=== PATIENT | female | born 1960 | race Caucasian/White ===

== ENCOUNTER 2017-07-24 11:34 | Inpatient (IN) | payer MEDICARE, OTHER ==
[~2017-07-24] VITALS: Ht 152.4 cm; Wt 72.0 kg
[~2017-07-24 11:34] MED LIST: CEPH500C2 PO
[2017-07-24 12:18] LABS: BASOPHILS # (AUTO) 0.2 X10'3 (0-0.2); EOSINOPHILS # (AUTO) 0.1 X10'3 (0-0.9); EOSINOPHILS % (AUTO) 0.4 % (0-6); HEMATOCRIT 34.3 % (35.0-45.0); HEMOGLOBIN 11.6 g/dl (12.0-16.0); LYMPHOCYTES % (AUTO) 6.2 % (21-51); MEAN CORPUSCULAR HEMOGLOBIN 34.3 PG (27.0-31.0); MEAN CORPUSCULAR VOLUME 100.9 FL (78-98); MEAN PLATELET VOLUME 7.2 FL (7.4-10.4); MONOCYTES # (AUTO) 0.8 X10'3 (0-0.9); MONOCYTES % (AUTO) 4.5 % (2-12); NEUTROPHILS # (AUTO) 14.8 X10'3 (1.8-7.7); NEUTROPHILS % (AUTO) 87.9 % (42-75); PLATELET COUNT 263 X10'3 (140-440); RED CELL DISTRIBUTION WIDTH 13.4 % (11.5-14.5); WHITE BLOOD COUNT 16.8 X10'3 (4.5-11.0)
[2017-07-24 12:28] LABS: PARTIAL THROMBOPLASTIN TIME 31 SECONDS (22-32); PROTHROMBIN TIME 10.2 SECONDS (9.0-12.0)
[2017-07-24 12:34] LABS: ALANINE AMINOTRANSFERASE 44 U/L (12-78); ALBUMIN 2.5 G/DL (3.4-5.0); ALBUMIN/GLOBULIN RATIO 0.5 (1.1-1.5); ALKALINE PHOSPHATASE 228 IU/L (46-116); ANION GAP 10 (8-16); ASPARTATE AMINO TRANSFERASE 61 U/L (10-37); BILIRUBIN,TOTAL 0.5 MG/DL (0.1-1.0); BLOOD UREA NITROGEN 14 MG/DL (7-18); BUN/CREATININE RATIO 18.9 (6.6-38.0); CHLORIDE 98 MMOL/L (99-107); CREATININE 0.74 MG/DL (0.40-0.90); GLUCOSE 101 MG/DL (70-104); SODIUM 136 MMOL/L (135-145); TOTAL CARBON DIOXIDE 27.9 MMOL/L (24-32); eGFR 81 ML/MIN
[2017-07-24] MEDS ORDERED: MIDAZolam 5mg/ml 2ml vial IV ONE (13:35)
[2017-07-24] MEDS ORDERED: normal saline 1000ML IV soln IVB ONE (13:35)
[2017-07-24 14:40] LABS: CLARITY,URINE SLIGHTLY CLOUDY (Clear); GLUCOSE, URINE NEGATIVE (Neg); KETONES,URINE NEGATIVE (Neg); LEUKOCYTE ESTERASE ,URINE LARGE (Neg); NITRITES, URINE NEGATIVE (Neg); OCCULT BLOOD,URINE SMALL (Neg); PROTEIN,URINE 100 mg/dl (Neg); UROBILINOGEN,URINE 0.2 E.U/dL (0.2-1.0)
[2017-07-24 14:41] LABS: COLOR,URINE DARK YELLOW (Yellow); UA COLLECTION TYPE FOLEY CATH
[2017-07-24 14:46] LABS: WBC,URINE 50-100 /HPF (0-4)
[2017-07-24 14:47] LABS: BACTERIA,URINE 1+ /HPF (Neg); MUCUS STRANDS NONE SEEN /LPF (Neg); SQUAMOUS EPITHELIAL CELL,UR NONE SEEN /LPF (FEW); WBC CLUMPS,URINE FEW /HPF (NEGATIVE)
[2017-07-24] MEDS ORDERED: CefTRIAXone/D5W-Rocephin 1gm 50 ML IV ONE (15:25)
[2017-07-24] MEDS ORDERED: mag hydrox/Alum hydrox/simeth 30ml oral suspension PO PRN (15:45)
[2017-07-24] MEDS ORDERED: magnesium Cl slow-release 64mg tablet PO PRN (15:45)
[2017-07-24] MEDS ORDERED: magnesium 4gm in 100ml NS 100 ML IV PRN (15:45)
[2017-07-24] MEDS ORDERED: potassium Cl 40MEQ/NS 500ml 500 ML IV PRN ×2 (15:45)
[2017-07-24] MEDS ORDERED: magnesium 2GM in 50ml NS 50 ML IV PRN (15:45)
[2017-07-24] MEDS ORDERED: potassium Cl 20 mEq SR tablet PO PRN (15:45)
[2017-07-24] MEDS ORDERED: magnesium hydroxide 30ml (MOM) UD suspension PO PRN (15:45)
[2017-07-24] MEDS: CefTRIAXone/D5W-Rocephin 1gm 50 ML IV SCH (15:55)
[2017-07-24] MEDS ORDERED: POLY17PO10 PO (16:22)
[2017-07-24] MEDS ORDERED: MULT-1074 PO (16:22)
[2017-07-24] MEDS ORDERED: CHOL10002 PO (16:22)
[2017-07-24] MEDS ORDERED: LACTC PO (16:22)
[2017-07-24] MEDS ORDERED: CARB200T PO (16:22)
[2017-07-24] MEDS ORDERED: TRAZ-143 PO (16:22)
[2017-07-24] MEDS ORDERED: ACET-2119 PO (16:22)
[2017-07-24] MEDS ORDERED: LACT10SO6 PO (16:22)
[2017-07-24] MEDS: normal saline 1000ml 1,000 ML IV SCH (16:45)
[2017-07-24] MEDS ORDERED: acetaminophen 325mg tablet PO PRN (17:15)
[2017-07-24 19:00] VITALS: BP 121/72
[2017-07-24] MEDS: carBAMazepine 100mg chewable tablet PO SCH (20:41)
[2017-07-24] MEDS: lactobacillus rhamnosus 10,000 MMU CELLS/CAPSULE PO SCH (20:41)
[2017-07-24] MEDS: traZODone 50mg tablet PO SCH (20:41)
[2017-07-24] MEDS: heparin, porcine 5000 units/ml vial SQ SCH (20:42)
[2017-07-24] MEDS: lactulose 20gm/30ml cup PO SCH (20:46)
[2017-07-25] VITALS: BP 160/77
[2017-07-25] MEDS: acetaminophen 325mg tablet PO PRN ×2 (00:56→20:12)
[2017-07-25] MEDS: normal saline 1000ml 1,000 ML IV SCH ×3 (02:47→13:33)
[2017-07-25 05:36] LABS: BASOPHILS % (AUTO) 0 % (0-1); EOSINOPHILS # (AUTO) 0.1 X10'3 (0-0.9); EOSINOPHILS % (AUTO) 0.4 % (0-6); HEMATOCRIT 28.4 % (35.0-45.0); HEMOGLOBIN 9.8 g/dl (12.0-16.0); LYMPHOCYTES # (AUTO) 0.9 X10'3 (1.1-4.8); LYMPHOCYTES % (AUTO) 7.9 % (21-51); MEAN CORPUSCULAR HEMOGLOBIN 34.8 PG (27.0-31.0); MEAN CORPUSCULAR HGB CONC 34.4 % (33.0-36.5); MEAN CORPUSCULAR VOLUME 101.2 FL (78-98); MEAN PLATELET VOLUME 7.7 FL (7.4-10.4); MONOCYTES # (AUTO) 0.9 X10'3 (0-0.9); MONOCYTES % (AUTO) 7.6 % (2-12); NEUTROPHILS # (AUTO) 10.1 X10'3 (1.8-7.7); NEUTROPHILS % (AUTO) 84.1 % (42-75); PLATELET COUNT 229 X10'3 (140-440); RED BLOOD COUNT 2.81 X10'6 (4.20-5.60); RED CELL DISTRIBUTION WIDTH 13.3 % (11.5-14.5); WHITE BLOOD COUNT 12.1 X10'3 (4.5-11.0)
[2017-07-25 05:57] LABS: ALANINE AMINOTRANSFERASE 33 U/L (12-78); ALBUMIN 1.9 G/DL (3.4-5.0); ALBUMIN/GLOBULIN RATIO 0.4 (1.1-1.5); ALKALINE PHOSPHATASE 195 IU/L (46-116); ANION GAP 10 (8-16); ASPARTATE AMINO TRANSFERASE 41 U/L (10-37); BILIRUBIN,TOTAL 0.4 MG/DL (0.1-1.0); BLOOD UREA NITROGEN 10 MG/DL (7-18); BUN/CREATININE RATIO 13.5 (6.6-38.0); CHLORIDE 104 MMOL/L (99-107); CREATININE 0.74 MG/DL (0.40-0.90); GLUCOSE 106 MG/DL (70-104); POTASSIUM 3.6 MMOL/L (3.5-5.1); SODIUM 139 MMOL/L (135-145); TOTAL CARBON DIOXIDE 25.5 MMOL/L (24-32); TOTAL PROTEIN 6.5 G/DL (6.4-8.2); eGFR 81 ML/MIN
[2017-07-25 06:00] VITALS: BP 154/73
[2017-07-25] MEDS: CefTRIAXone/D5W-Rocephin 1gm 50 ML IV SCH (09:05)
[2017-07-25] MEDS: multivitamins, therapeutics tablet PO SCH (09:06)
[2017-07-25] MEDS: lactobacillus rhamnosus 10,000 MMU CELLS/CAPSULE PO SCH ×2 (09:06→20:12)
[2017-07-25] MEDS: vitamin D (cholecalciferol) 1,000 unit tablet PO SCH (09:06)
[2017-07-25] MEDS: carBAMazepine 100mg chewable tablet PO SCH ×4 (09:06→20:13)
[2017-07-25] MEDS: heparin, porcine 5000 units/ml vial SQ SCH ×2 (09:10→20:19)
[2017-07-25 11:00] VITALS: BP 152/67
[2017-07-25 18:30] VITALS: BP 170/103
[2017-07-25] MEDS: traZODone 50mg tablet PO SCH (20:12)
[2017-07-25 23:00] VITALS: BP 127/53
[2017-07-26] MEDS: normal saline 1000ml 1,000 ML IV SCH ×2 (00:16→17:21)
[2017-07-26 04:56] LABS: BASOPHILS % (AUTO) 0.1 % (0-1); EOSINOPHILS # (AUTO) 0.1 X10'3 (0-0.9); EOSINOPHILS % (AUTO) 0.6 % (0-6); HEMATOCRIT 33.7 % (35.0-45.0); HEMOGLOBIN 11.4 g/dl (12.0-16.0); LYMPHOCYTES # (AUTO) 1.2 X10'3 (1.1-4.8); LYMPHOCYTES % (AUTO) 8.6 % (21-51); MEAN CORPUSCULAR HEMOGLOBIN 34.6 PG (27.0-31.0); MEAN CORPUSCULAR HGB CONC 33.9 % (33.0-36.5); MEAN CORPUSCULAR VOLUME 101.9 FL (78-98); MEAN PLATELET VOLUME 7.4 FL (7.4-10.4); MONOCYTES # (AUTO) 1.1 X10'3 (0-0.9); MONOCYTES % (AUTO) 7.4 % (2-12); NEUTROPHILS # (AUTO) 11.9 X10'3 (1.8-7.7); NEUTROPHILS % (AUTO) 83.3 % (42-75); PLATELET COUNT 278 X10'3 (140-440); RED CELL DISTRIBUTION WIDTH 13.7 % (11.5-14.5); WHITE BLOOD COUNT 14.2 X10'3 (4.5-11.0)
[2017-07-26 05:44] LABS: ALANINE AMINOTRANSFERASE 42 U/L (12-78); ALBUMIN 2.1 G/DL (3.4-5.0); ALBUMIN/GLOBULIN RATIO 0.4 (1.1-1.5); ALKALINE PHOSPHATASE 230 IU/L (46-116); ANION GAP 11 (8-16); ASPARTATE AMINO TRANSFERASE 54 U/L (10-37); BILIRUBIN,TOTAL 0.4 MG/DL (0.1-1.0); BLOOD UREA NITROGEN 7 MG/DL (7-18); BUN/CREATININE RATIO 10.4 (6.6-38.0); CALCIUM 8.4 MG/DL (8.5-10.1); CHLORIDE 105 MMOL/L (99-107); CREATININE 0.67 MG/DL (0.40-0.90); GLUCOSE 108 MG/DL (70-104); POTASSIUM 3.8 MMOL/L (3.5-5.1); SODIUM 142 MMOL/L (135-145); TOTAL PROTEIN 7.3 G/DL (6.4-8.2); eGFR 90 ML/MIN
[2017-07-26 07:23] VITALS: BP 153/68
[2017-07-26] MEDS: lactobacillus rhamnosus 10,000 MMU CELLS/CAPSULE PO SCH ×2 (08:57→19:37)
[2017-07-26] MEDS: vitamin D (cholecalciferol) 1,000 unit tablet PO SCH (08:57)
[2017-07-26] MEDS: multivitamins, therapeutics tablet PO SCH (08:57)
[2017-07-26] MEDS: heparin, porcine 5000 units/ml vial SQ SCH ×2 (08:57→19:40)
[2017-07-26] MEDS: acetaminophen 325mg tablet PO PRN ×2 (08:58→19:38)
[2017-07-26] MEDS: carBAMazepine 100mg chewable tablet PO SCH ×4 (08:58→21:51)
[2017-07-26] MEDS: piperacillin/tazo 3.375gm/50ml 50 ML IV SCH ×3 (11:13→19:37)
[2017-07-26] MEDS: vancomycin/NS 1 GM ADD-VANTAGE 250 ML IV SCH ×2 (12:17→22:39)
[2017-07-26 12:24] VITALS: BP 107/50
[2017-07-26] MEDS: lactulose 20gm/30ml cup PO SCH (17:20)
[2017-07-26 19:00] VITALS: BP 145/58
[2017-07-26] MEDS: traZODone 50mg tablet PO SCH (21:52)
[2017-07-27] MEDS: piperacillin/tazo 3.375gm/50ml 50 ML IV SCH ×4 (01:03→20:27)
[2017-07-27] MEDS: acetaminophen 325mg tablet PO PRN ×2 (02:55→23:42)
[2017-07-27] MEDS: normal saline 1000ml 1,000 ML IV SCH ×3 (03:43→23:43)
[2017-07-27 04:00] VITALS: BP 145/69
[2017-07-27 05:36] LABS: BASOPHILS % (AUTO) 0.3 % (0-1); EOSINOPHILS # (AUTO) 0.1 X10'3 (0-0.9); EOSINOPHILS % (AUTO) 0.7 % (0-6); HEMATOCRIT 28.1 % (35.0-45.0); HEMOGLOBIN 9.6 g/dl (12.0-16.0); LYMPHOCYTES # (AUTO) 1.2 X10'3 (1.1-4.8); LYMPHOCYTES % (AUTO) 10.5 % (21-51); MEAN CORPUSCULAR HEMOGLOBIN 34.5 PG (27.0-31.0); MEAN CORPUSCULAR HGB CONC 34.2 % (33.0-36.5); MEAN CORPUSCULAR VOLUME 101.1 FL (78-98); MEAN PLATELET VOLUME 7.4 FL (7.4-10.4); MONOCYTES # (AUTO) 1.2 X10'3 (0-0.9); MONOCYTES % (AUTO) 10.2 % (2-12); NEUTROPHILS # (AUTO) 8.9 X10'3 (1.8-7.7); NEUTROPHILS % (AUTO) 78.3 % (42-75); PLATELET COUNT 268 X10'3 (140-440); RED BLOOD COUNT 2.78 X10'6 (4.20-5.60); RED CELL DISTRIBUTION WIDTH 13.4 % (11.5-14.5); WHITE BLOOD COUNT 11.3 X10'3 (4.5-11.0)
[2017-07-27 06:01] LABS: ALANINE AMINOTRANSFERASE 29 U/L (12-78); ALBUMIN 1.9 G/DL (3.4-5.0); ALBUMIN/GLOBULIN RATIO 0.4 (1.1-1.5); ALKALINE PHOSPHATASE 175 IU/L (46-116); ANION GAP 10 (8-16); ASPARTATE AMINO TRANSFERASE 24 U/L (10-37); BILIRUBIN,TOTAL 0.4 MG/DL (0.1-1.0); BLOOD UREA NITROGEN 6 MG/DL (7-18); BUN/CREATININE RATIO 8.5 (6.6-38.0); CALCIUM 7.8 MG/DL (8.5-10.1); CHLORIDE 104 MMOL/L (99-107); CREATININE 0.71 MG/DL (0.40-0.90); GLUCOSE 146 MG/DL (70-104); MAGNESIUM 1.8 MG/DL (1.5-2.4); POTASSIUM 3.2 MMOL/L (3.5-5.1); SODIUM 140 MMOL/L (135-145); TOTAL CARBON DIOXIDE 25.9 MMOL/L (24-32); TOTAL PROTEIN 6.4 G/DL (6.4-8.2); eGFR 85 ML/MIN
[2017-07-27 07:00] VITALS: BP 136/62
[2017-07-27] MEDS: multivitamins, therapeutics tablet PO SCH (08:11)
[2017-07-27] MEDS: heparin, porcine 5000 units/ml vial SQ SCH ×2 (08:11→20:28)
[2017-07-27] MEDS: lactobacillus rhamnosus 10,000 MMU CELLS/CAPSULE PO SCH ×2 (08:11→20:27)
[2017-07-27] MEDS: vitamin D (cholecalciferol) 1,000 unit tablet PO SCH (08:11)
[2017-07-27] MEDS: potassium Cl 20 mEq SR tablet PO PRN ×2 (08:12→11:53)
[2017-07-27] MEDS: carBAMazepine 100mg chewable tablet PO SCH ×4 (10:27→20:28)
[2017-07-27 11:28] VITALS: BP 174/84
[2017-07-27] MEDS ORDERED: hydrALAZINE 20mg/ml inj. IV PRN (11:35)
[2017-07-27] MEDS: ondansetron/PF 4mg/2ml inj IV PRN ×2 (11:52→19:15)
[2017-07-27] MEDS: vancomycin/NS 1 GM ADD-VANTAGE 250 ML IV SCH ×2 (11:53→22:55)
[2017-07-27 13:44] VITALS: BP 131/60
[2017-07-27] MEDS ORDERED: potassium Cl 20 mEq SR tablet PO PRN ×2 (16:50)
[2017-07-27] MEDS ORDERED: potassium Cl 40MEQ/NS 500ml 500 ML IV PRN ×2 (16:50)
[2017-07-27 19:00] VITALS: BP 144/73
[2017-07-27] MEDS: traZODone 50mg tablet PO SCH (20:28)
[2017-07-27] MEDS ORDERED: VANCOMYCIN LEVEL IV ONE (22:30)
[2017-07-28] VITALS: BP 126/55
[2017-07-28] MEDS: piperacillin/tazo 3.375gm/50ml 50 ML IV SCH ×4 (01:42→20:28)
[2017-07-28 05:57] LABS: BASOPHILS % (AUTO) 0.3 % (0-1); EOSINOPHILS # (AUTO) 0.3 X10'3 (0-0.9); EOSINOPHILS % (AUTO) 3.2 % (0-6); HEMATOCRIT 26.7 % (35.0-45.0); LYMPHOCYTES # (AUTO) 1.9 X10'3 (1.1-4.8); LYMPHOCYTES % (AUTO) 19.4 % (21-51); MEAN CORPUSCULAR HEMOGLOBIN 34.4 PG (27.0-31.0); MEAN CORPUSCULAR HGB CONC 33.8 % (33.0-36.5); MEAN CORPUSCULAR VOLUME 101.8 FL (78-98); MEAN PLATELET VOLUME 7.4 FL (7.4-10.4); MONOCYTES # (AUTO) 1.1 X10'3 (0-0.9); MONOCYTES % (AUTO) 10.8 % (2-12); NEUTROPHILS # (AUTO) 6.5 X10'3 (1.8-7.7); NEUTROPHILS % (AUTO) 66.3 % (42-75); PLATELET COUNT 310 X10'3 (140-440); RED BLOOD COUNT 2.62 X10'6 (4.20-5.60); RED CELL DISTRIBUTION WIDTH 13.8 % (11.5-14.5); WHITE BLOOD COUNT 9.9 X10'3 (4.5-11.0)
[2017-07-28 06:05] LABS: ALANINE AMINOTRANSFERASE 25 U/L (12-78); ALBUMIN 1.7 G/DL (3.4-5.0); ALBUMIN/GLOBULIN RATIO 0.4 (1.1-1.5); ALKALINE PHOSPHATASE 135 IU/L (46-116); ANION GAP 6 (8-16); ASPARTATE AMINO TRANSFERASE 23 U/L (10-37); BILIRUBIN,TOTAL 0.4 MG/DL (0.1-1.0); BLOOD UREA NITROGEN 8 MG/DL (7-18); BUN/CREATININE RATIO 10.3 (6.6-38.0); CALCIUM 7.7 MG/DL (8.5-10.1); CHLORIDE 107 MMOL/L (99-107); CREATININE 0.78 MG/DL (0.40-0.90); GLUCOSE 130 MG/DL (70-104); MAGNESIUM 1.8 MG/DL (1.5-2.4); POTASSIUM 3.6 MMOL/L (3.5-5.1); SODIUM 140 MMOL/L (135-145); TOTAL CARBON DIOXIDE 26.8 MMOL/L (24-32); TOTAL PROTEIN 5.8 G/DL (6.4-8.2); eGFR 76 ML/MIN
[2017-07-28 07:00] VITALS: BP 128/50
[2017-07-28] MEDS: lactobacillus rhamnosus 10,000 MMU CELLS/CAPSULE PO SCH ×2 (08:42→20:29)
[2017-07-28] MEDS: multivitamins, therapeutics tablet PO SCH (08:43)
[2017-07-28] MEDS: heparin, porcine 5000 units/ml vial SQ SCH ×2 (08:43→20:28)
[2017-07-28] MEDS: carBAMazepine 100mg chewable tablet PO SCH ×4 (08:43→20:30)
[2017-07-28] MEDS: vitamin D (cholecalciferol) 1,000 unit tablet PO SCH (08:43)
[2017-07-28] MEDS: normal saline 1000ml 1,000 ML IV SCH (08:44)
[2017-07-28 11:00] VITALS: BP 102/75
[2017-07-28] MEDS: vancomycin inj 1,250 MG in normal saline 250ml IV soln 250 ML IV SCH ×2 (11:57→23:12)
[2017-07-28] MEDS: lactulose 20gm/30ml cup PO SCH (17:14)
[2017-07-28 19:15] VITALS: BP 160/75
[2017-07-28] MEDS: traZODone 50mg tablet PO SCH (20:30)
[2017-07-28] MEDS: acetaminophen 325mg tablet PO PRN (23:19)
[2017-07-29] VITALS: BP 165/75
[2017-07-29] MEDS: piperacillin/tazo 3.375gm/50ml 50 ML IV SCH ×2 (02:03→08:27)
[2017-07-29 05:40] LABS: BASOPHILS % (AUTO) 0.1 % (0-1); EOSINOPHILS # (AUTO) 0.3 X10'3 (0-0.9); HEMATOCRIT 28.7 % (35.0-45.0); HEMOGLOBIN 9.7 g/dl (12.0-16.0); LYMPHOCYTES # (AUTO) 2.1 X10'3 (1.1-4.8); LYMPHOCYTES % (AUTO) 17.8 % (21-51); MEAN CORPUSCULAR HEMOGLOBIN 34.3 PG (27.0-31.0); MEAN CORPUSCULAR HGB CONC 33.9 % (33.0-36.5); MEAN PLATELET VOLUME 7.5 FL (7.4-10.4); MONOCYTES % (AUTO) 8.4 % (2-12); NEUTROPHILS # (AUTO) 8.2 X10'3 (1.8-7.7); NEUTROPHILS % (AUTO) 70.7 % (42-75); PLATELET COUNT 375 X10'3 (140-440); RED BLOOD COUNT 2.84 X10'6 (4.20-5.60); RED CELL DISTRIBUTION WIDTH 13.4 % (11.5-14.5); WHITE BLOOD COUNT 11.6 X10'3 (4.5-11.0)
[2017-07-29 05:57] LABS: ALANINE AMINOTRANSFERASE 29 U/L (12-78); ALBUMIN 1.8 G/DL (3.4-5.0); ALBUMIN/GLOBULIN RATIO 0.4 (1.1-1.5); ALKALINE PHOSPHATASE 160 IU/L (46-116); ANION GAP 9 (8-16); ASPARTATE AMINO TRANSFERASE 46 U/L (10-37); BILIRUBIN,TOTAL 0.4 MG/DL (0.1-1.0); BLOOD UREA NITROGEN 6 MG/DL (7-18); BUN/CREATININE RATIO 8.3 (6.6-38.0); CALCIUM 8.2 MG/DL (8.5-10.1); CHLORIDE 107 MMOL/L (99-107); CREATININE 0.72 MG/DL (0.40-0.90); GLUCOSE 101 MG/DL (70-104); MAGNESIUM 1.9 MG/DL (1.5-2.4); POTASSIUM 3.6 MMOL/L (3.5-5.1); SODIUM 144 MMOL/L (135-145); TOTAL CARBON DIOXIDE 28.3 MMOL/L (24-32); TOTAL PROTEIN 6.4 G/DL (6.4-8.2); eGFR 83 ML/MIN
[2017-07-29] MEDS: vitamin D (cholecalciferol) 1,000 unit tablet PO SCH (08:27)
[2017-07-29] MEDS: multivitamins, therapeutics tablet PO SCH (08:27)
[2017-07-29] MEDS: acetaminophen 325mg tablet PO PRN (08:28)
[2017-07-29] MEDS: heparin, porcine 5000 units/ml vial SQ SCH (08:28)
[2017-07-29] MEDS: carBAMazepine 100mg chewable tablet PO SCH ×2 (08:28→14:21)
[2017-07-29] MEDS: lactobacillus rhamnosus 10,000 MMU CELLS/CAPSULE PO SCH (08:28)
[2017-07-29] MEDS: vancomycin inj 1,250 MG in normal saline 250ml IV soln 250 ML IV SCH (11:00)
[2017-07-29] MEDS ORDERED: LISI10TA4 PO ×2 (11:59→17:03)
[2017-07-29] MEDS ORDERED: ACET-2119 PO (12:00)
[2017-07-29] MEDS ORDERED: lisinopril 10 MG tablet PO SCH (12:15)
[2017-07-29] MEDS ORDERED: VANCOMYCIN LEVEL IV ONE (22:30)
[2017-07-30] MEDS ORDERED: lisinopril 10 MG tablet PO SCH (08:00)
== END 2017-07-29 17:50 | disposition home or self-care (01) | DRG 871 ==
LOC: ER 11:34 → ED HOLD 15:43 → EDBEDREQSVC 17:06 → EDBEDREQ 17:06 → SUR 3N 18:59
PROVIDERS: ADMIT Internal Medicine; ATTEND Internal Medicine
DX: A41.9 Sepsis, unspecified organism (principal); J15.9 Unspecified bacterial pneumonia; F73 Profound intellectual disabilities; N39.0 Urinary tract infection, site not specified; E86.0 Dehydration; W18.39XA Other fall on same level, initial encounter; R55 Syncope and collapse; G40.909 Epilepsy, unspecified, not intractable, without status epilepticus; G80.9 Cerebral palsy, unspecified; Z79.899 Other long term (current) drug therapy; Z87.440 Personal history of urinary (tract) infections; Y93.89 Activity, other specified; Y92.89 Other specified places as the place of occurrence of the external cause; Y99.8 Other external cause status
CPT/HCPCS: 36415; 70450; 71045; 76775; 80053; 80202; 81001; 83605; 83735; 84145; 85025; 85610; 85730; 87040; 87088; 87502; 87503; 93005; 96361; 96374; 97110; 97162; 97530; 99285; A4353; A6212; J0360; J0696; J1644; J2250; J2405; J2543; J3370; J7030

== ENCOUNTER 2018-12-05 22:22 | Emergency (ER) | payer MEDICARE, OTHER ==
[~2018-12-05] VITALS: Ht 152.4 cm; Wt 59.0 kg
[~2018-12-05 22:22] MED LIST changes: +CARB200T PO; -CEPH500C2 PO; +CHOL10002 PO; +LACTC PO; +LISI10TA4 PO; +MULT-1074 PO; +TRAZ-251 PO
[2018-12-05 22:58] LABS: BASOPHILS % (AUTO) 0.2 % (0-1); EOSINOPHILS # (AUTO) 0.1 X10'3 (0-0.9); EOSINOPHILS % (AUTO) 0.8 % (0-6); HEMATOCRIT 39.2 % (35.0-45.0); HEMOGLOBIN 13.5 g/dl (12.0-16.0); LYMPHOCYTES # (AUTO) 0.2 X10'3 (1.1-4.8); LYMPHOCYTES % (AUTO) 2.3 % (21-51); MEAN CORPUSCULAR HEMOGLOBIN 35.3 PG (27.0-31.0); MEAN CORPUSCULAR HGB CONC 34.4 g/dL (33.0-36.5); MEAN CORPUSCULAR VOLUME 102.6 FL (78-98); MONOCYTES # (AUTO) 0.5 X10'3 (0-0.9); MONOCYTES % (AUTO) 5.1 % (2-12); NEUTROPHILS # (AUTO) 9.3 X10'3 (1.8-7.7); NEUTROPHILS % (AUTO) 91.6 % (42-75); PLATELET COUNT 249 X10'3 (140-440); RED BLOOD COUNT 3.82 X10'6 (4.20-5.60); RED CELL DISTRIBUTION WIDTH 13.4 % (11.5-14.5); WHITE BLOOD COUNT 10.1 X10'3 (4.5-11.0)
[2018-12-05 22:59] LABS: CLARITY,URINE SLIGHTLY CLOUDY (Clear); COLOR,URINE YELLOW (Yellow); GLUCOSE, URINE NEGATIVE (Neg); KETONES,URINE NEGATIVE (Neg); LEUKOCYTE ESTERASE ,URINE MODERATE (Neg); NITRITES, URINE NEGATIVE (Neg); OCCULT BLOOD,URINE MODERATE (Neg); PROTEIN,URINE TRACE mg/dl (Neg); UROBILINOGEN,URINE 0.2 E.U/dL (0.2-1.0)
[2018-12-05 23:10] LABS: UA COLLECTION TYPE STRAIGHT CATH
[2018-12-05 23:11] LABS: BACTERIA,URINE 1+ /HPF (Neg); RBC,URINE NONE SEEN /HPF (0-2); SQUAMOUS EPITHELIAL CELL,UR NONE SEEN /LPF (FEW); WBC,URINE 50-100 /HPF (0-4)
[2018-12-05 23:16] LABS: ALANINE AMINOTRANSFERASE 29 U/L (12-78); ALBUMIN 3.5 G/DL (3.4-5.0); ALBUMIN/GLOBULIN RATIO 0.7 (1.1-1.5); ALKALINE PHOSPHATASE 140 IU/L (46-116); ANION GAP 4 (8-16); ASPARTATE AMINO TRANSFERASE 27 U/L (10-37); BILIRUBIN,TOTAL 0.2 MG/DL (0.1-1.0); BLOOD UREA NITROGEN 24 MG/DL (7-18); BUN/CREATININE RATIO 34.3 (6.6-38.0); CALCIUM 9.2 MG/DL (8.5-10.1); CHLORIDE 103 MMOL/L (99-107); GLUCOSE 167 MG/DL (70-104); POTASSIUM 4.8 MMOL/L (3.5-5.1); SODIUM 140 MMOL/L (135-145); TOTAL CARBON DIOXIDE 33.2 MMOL/L (24-32); TOTAL PROTEIN 8.4 G/DL (6.4-8.2); eGFR 86 ML/MIN
[2018-12-05] MEDS ORDERED: normal saline 1000ML IV soln IVB ONE (23:20)
[2018-12-05] MEDS ORDERED: CefTRIAXone/D5W-Rocephin 1gm 50 ML IV ONE (23:20)
[2018-12-05] MEDS ORDERED: ondansetron/PF 4mg/2ml inj IV ONE (23:20)
[2018-12-05] MEDS ORDERED: ONDA4TAB6 PO (23:22)
[2018-12-05] MEDS ORDERED: CEPH250T PO (23:22)
[2018-12-06 00:08] VITALS: BP 143/74
== END 2018-12-06 01:35 | disposition home or self-care (01) ==
LOC: ER 22:22
DX: N39.0 Urinary tract infection, site not specified (principal); E86.0 Dehydration; Z86.69 Personal history of other diseases of the nervous system and sense organs; Z79.2 Long term (current) use of antibiotics; Z79.899 Other long term (current) drug therapy
CPT/HCPCS: 36415; 71045; 80053; 81001; 85025; 87088; 93005; 96365; 96375; 99284; J0696; J2405; J7030; P9612